=== PATIENT | male | born 1990 | race Caucasian/White ===

== ENCOUNTER 2022-04-03 14:24 | Emergency (ER) | payer MEDICAID ==
[2022-04-03 14:46] VITALS: BP 136/98
[2022-04-03] MEDS ORDERED: BACITRACIN ZINC OINT 1 PACKET TOP STA (14:56)
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
== END 2022-04-03 15:18 | disposition home or self-care (01) ==
LOC: ED 14:24
DX: T23.012A Burn of unspecified degree of left thumb (nail), initial encounter (principal)
CPT/HCPCS: 99282; A9270